=== PATIENT | female | born 1955 ===

== ENCOUNTER 2017-07-04 16:31 | Emergency (ER) | payer OTHER ==
[2017-07-04 16:32] VITALS: BMI 27.6
[2017-07-04 16:39] VITALS: O2SAT 97
[2017-07-04] MEDS ORDERED: Sodium Chloride 0.9% 1,000 ML IV ONE (16:53)
[2017-07-04] MEDS ORDERED: Sodium Chloride 0.9% 1,000 ML ONE (16:58)
[2017-07-04 17:12] LABS: BASO % 0.4 % (0.0-2.0); EOS # 0.2 K/uL (0.0-0.7); EOS % 2.5 % (0.0-4.0); HEMATOCRIT 36.5 % (34.0-47.0); LYMPH # 2.5 K/uL (1.0-4.3); LYMPH % 37.1 % (20.0-40.0); MEAN CORPUSCULAR HEMOGLOBIN 30.5 pg (27.0-31.0); MEAN CORPUSCULAR HGB CONC 35.1 g/dL (33.0-37.0); MEAN PLATELET VOLUME 8.1 fL (7.2-11.7); MONO # 0.5 K/uL (0.0-0.8); MONO % 7.9 % (0.0-10.0); RED CELL DISTRIBUTION WIDTH 12.2 % (11.5-14.5); WHITE BLOOD COUNT 6.8 K/uL (4.8-10.8)
[2017-07-04 17:18] LABS: CHLORIDE 104 mmol/L (98-107); SODIUM 143 mmol/L (132-148)
[2017-07-04 17:20] LABS: GFR AFRICAN-AMERICAN > 60
--- NOTE | 2017-07-04 17:20 | C.PDOC ---
History Of Present Illness 62 year old female presents to the emergency department with complaints of right sided flank pain radiating to her right abdomen for three days. Pain is exacerbated by movement. Patient denies nausea, vomiting, fever, or chills. Time Seen by Provider: 07/04/17 16:46 Chief Complaint (Nursing): Back Pain History Per: Patient History/Exam Limitations: no limitations Onset/Duration Of Symptoms: Days (3 days ) Current Symptoms Are (Timing): Still Present Quality Of Discomfort: "Pain" Previous Symptoms: None Associated Symptoms: None Exacerbating Factor(s): Movement Recent travel outside of the [place]: No Past Medical History Reviewed: Historical Data, Nursing Documentation, Vital Signs Vital Signs: Last Vital Signs Temp 97.7 F 07/04/17 18:31 Pulse 82 07/04/17 18:31 Resp 18 07/04/17 18:31 BP 122/72 07/04/17 18:31 Pulse Ox 97 07/04/17 18:32 - Medical History PMH: Diabetes, HTN, Hyperlipidemia - [facility] Procedures OTHER SKIN & SUBQ I D (08/23/14) Family History: States: Unknown Family Hx - Social History Hx Tobacco Use: No Hx Alcohol Use: No Hx Substance Use: No - Immunization History Hx Tetanus Toxoid Vaccination: No (not sure of last tetanus) Hx Influenza Vaccination: No Hx Pneumococcal Vaccination: No Review Of Systems Constitutional: Negative for: Fever, Chills Cardiovascular: Negative for: Chest Pain, Palpitations Respiratory: Negative for: Cough, Shortness of Breath Gastrointestinal: Positive for: Other (right flank pain ). Negative for: Nausea , Vomiting, Diarrhea Genitourinary: Negative for: Dysuria, Hematuria Musculoskeletal: Positive for: Back Pain Physical Exam - Physical Exam Appears: Non-toxic, No Acute Distress Skin: Warm, Dry Head: Atraumatic Eye(s): bilateral: Normal Inspection, EOMI Oral Mucosa: Moist Neck: Supple Chest: Symmetrical, No Deformity Cardiovascular: Rhythm Regular, No Murmur Respiratory: Normal Breath Sounds, No Rales, No Rhonchi, No Wheezing Gastrointestinal/Abdominal: Soft, No Tenderness, No Distention, No Guarding, No Rebound Back: Paraspinal Tenderness (right parathoracic tenderness ) Extremity: Normal ROM, No Tenderness Neurological/Psych: Oriented x3 Gait: Steady ED Course And Treatment - Laboratory Results Result Diagrams: 07/04/17 17:09 07/04/17 17:09 Lab Interpretation: Normal O2 Sat by Pulse Oximetry: 97 (room air) Pulse Ox Interpretation: Normal - CT Scan/US Abdomen & Pelvis CT Other Rad Studies (CT/US): Read By Radiologist, Radiology Report Reviewed CT/US Interpretation: FINDINGS: LOWER THORAX: Mild bibasilar atelectasis and some suspected linear atelectasis or scarring left lingular region. . No focal consolidation effusion or basilar pneumothorax. . There may be some minimal linear. There is a small hiatal hernia. LIVER: Liver is mildly enlarged measuring nearly 20 cm in CC dimension. No obvious hepatic mass or collection. GALLBLADDER AND BILE DUCTS: Gallbladder is physiologically distended. No evidence of intraluminal gallbladder calculi. PANCREAS: Pancreas appears grossly unremarkable without evidence of mass collection or calcification. SPLEEN: Spleen exhibits normal size and attenuation pattern without mass collection or calcification. ADRENALS: There are no adrenal lesions. KIDNEYS AND URETERS: The kidneys exhibit relatively symmetric size. BLADDER: Urinary bladder is appears incompletely distended which may account for slight thick- walled appearance. Rule out cystitis. . REPRODUCTIVE: Unremarkable as visualized. APPENDIX: Normal-appearing appendix of best seen on coronal image number [id number] and axial image number [id number]. No evidence of acute appendicitis. BOWEL: Evaluation of bowel is limited due to the lack of oral contrast material. The stomach is distended with food debris liquid and air. . Visualized loops of small bowel exhibit normal contour and caliber. No evidence of acute mechanical small bowel obstruction. Stool and air seen throughout the colon. No definitive evidence of mural wall thickening. PERITONEUM: Unremarkable. No fluid collection. No free air. Tiny fat containing umbilical hernia. Vague infiltration changes are also seen within anterolateral subcutaneous fat lower abdomen nonspecific. LYMPH NODES: Few small right lower quadrant lymph nodes are present ; rule out mesenteric adenitis. Several small nonspecific retroperitoneal lymph nodes are felt be present. VASCULATURE : No evidence of abdominal aortic aneurysm. . Mild partially calcified atherosclerotic plaque seen along the abdominal aorta. BONES: Minor multilevel degenerative spondylosis of the lower thoracic and lumbar spine. OTHER FINDINGS: None. IMPRESSION: few small right lower quadrant lymph nodes ; rule out mesenteric adenitis. No evidence of nephrolithiasis or hydronephrosis. Findings discussed with nurse practitioner Yessica at approximately 6:15 p.m. with written down and read back verification Progress Note: Abdominal CT, blood work, and UA were ordered. Patient was given Flexeril, Toradol, and IV fluids. On re-evaluation abdomen soft nontender. Discharged home in stable condition Reassessment Condition: Improved Disposition Counseled Patient/Family Regarding: Studies Performed, Diagnosis, Need For Followup, Rx Given - Disposition Referrals: [facility] [Outside] [facility] [Outside] Disposition: HOME/ ROUTINE Disposition Time: 18:30 Condition: STABLE Additional Instructions: Follow up with your PMD or clinc for further evaluation Prescriptions: Naproxen [Naprosyn] 1 tab PO BID PRN #25 tab PRN Reason: Pain Nitrofurantoin Macrocrystals [Macrobid] 1 cap PO BID #14 cap Instructions: Urinary Tract Infection in Women (ED), Back Pain (ED) Forms: [employer] (Vietnamese) Print Language: TURKMEN - POA Present On Arrival: None - Clinical Impression Clinical Impression: Low back pain, UTI (urinary tract infection) - Scribe Statement The provider has reviewed the documentation as recorded by the Lennoxibnancy Anand All medical record entries made by the Lennoxibnancy were at my direction and personally dictated by me. I have reviewed the chart and agree that the record accurately reflects my personal performance of the history, physical exam, medical decision making, and the department course for this patient. I have also personally directed, reviewed, and agree with the discharge instructions and disposition.
[2017-07-04 17:21] LABS: ALB/GLOB RATIO 1.1 (1.0-2.1); ALKALINE PHOSPHATASE 73 U/L (38-126); ALT/SGPT 21 U/L (9-52); AST/SGOT 20 U/L (14-36); BILIRUBIN,TOTAL 0.6 mg/dL (0.2-1.3); BLOOD UREA NITROGEN 17 mg/dL (7-17); CALCIUM 9.6 mg/dl (8.6-10.4); CARBON DIOXIDE 24 mmol/L (22-30); GLUCOSE,RANDOM 124 mg/dL (65-105); TOTAL PROTEIN 7.9 g/dL (6.3-8.3)
[2017-07-04 17:25] LABS: RBC URINE 1 /hpf (0-3); TRANSITIONAL EPITHIAL < 1 /hpf (0-3); URINE BACTERIA OCC (<OCC); URINE BILIRUBIN NEGATIVE (NEGATIVE); URINE BLOOD NEGATIVE (NEGATIVE); URINE COLOR Yellow (YELLOW); URINE GLUCOSE (UA) NORMAL (Normal); URINE KETONE NEGATIVE (NEGATIVE); URINE LEUKOCYTE ESTERASE 3+ Leu/uL (Negative); URINE PROTEIN NEGATIVE (NEGATIVE); URINE UROBILINOGEN NORMAL mg/dL (0.2-1.0); WBC URINE 26 /hpf (0-5)
--- NOTE | 2017-07-04 18:17 | CT ---
PROCEDURE: CT abdomen pelvis dated 07/04/2017 HISTORY: Left-sided flank pain COMPARISON: None. TECHNIQUE: Contiguous axial images of the abdomen and pelvis without oral or intravenous contrast material. Additional 2 dimensional sagittal and coronal reformats generated. Radiation dose: Total exam DLP = 427.94 mGy-cm. This CT exam was performed using one or more of the following dose reduction techniques: Automated exposure control, adjustment of the mA and/or kV according to patient size, and/or use of iterative reconstruction technique. FINDINGS: LOWER THORAX: Mild bibasilar atelectasis and some suspected linear atelectasis or scarring left lingular region. . No focal consolidation effusion or basilar pneumothorax. . There may be some minimal linear There is a small hiatal hernia. LIVER: Liver is mildly enlarged measuring nearly 20 cm in CC dimension. No obvious hepatic mass or collection. GALLBLADDER AND BILE DUCTS: Gallbladder is physiologically distended. No evidence of intraluminal gallbladder calculi PANCREAS: Pancreas appears grossly unremarkable without evidence of mass collection or calcification. SPLEEN: Spleen exhibits normal size and attenuation pattern without mass collection or calcification. ADRENALS: There are no adrenal lesions. KIDNEYS AND URETERS: The kidneys exhibit relatively symmetric size BLADDER: Urinary bladder is appears incompletely distended which may account for slight thick-walled appearance. Rule out cystitis. . REPRODUCTIVE: Unremarkable as visualized. APPENDIX: Normal-appearing appendix of best seen on coronal image number [id number] and axial image number [id number]. No evidence of acute appendicitis BOWEL: Evaluation of bowel is limited due to the lack of oral contrast material. The stomach is distended with food debris liquid and air. . Visualized loops of small bowel exhibit normal contour and caliber. No evidence of acute mechanical small bowel obstruction. Stool and air seen throughout the colon. No definitive evidence of mural wall thickening. PERITONEUM: Unremarkable. No fluid collection. No free air. Tiny fat containing umbilical hernia. Vague infiltration changes are also seen within anterolateral subcutaneous fat lower abdomen nonspecific. LYMPH NODES: Few small right lower quadrant lymph nodes are present ; rule out mesenteric adenitis. Several small nonspecific retroperitoneal lymph nodes are felt be present. VASCULATURE: No evidence of abdominal aortic aneurysm. . Mild partially calcified atherosclerotic plaque seen along the abdominal aorta BONES: Minor multilevel degenerative spondylosis of the lower thoracic and lumbar spine. OTHER FINDINGS: None. IMPRESSION: few small right lower quadrant lymph nodes ; rule out mesenteric adenitis. No evidence of nephrolithiasis or hydronephrosis. Findings discussed with nurse practitioner Yessica at approximately 6:15 p.m. with written down and read back verification
[2017-07-04 18:32] VITALS: BP 122/72; PULSE 82; RESP 18; TEMP 97.7
== END 2017-07-04 18:34 | disposition home or self-care (01) ==
LOC: C.ER 16:31
DX: N39.0 Urinary tract infection, site not specified (principal); M54.5 Low back pain
CPT/HCPCS: 74176; 80053; 81001; 83690; 85025; 96361; 96374; 99285; J1885; J7040